=== PATIENT | male | born 1955 | race Caucasian/White ===

== ENCOUNTER 2017-12-22 08:44 | Emergency (ER) | payer OTHER ==
[~2017-12-22] VITALS: Ht 193 cm; Wt 97.5 kg
[2017-12-22 08:50] VITALS: BP 167/95
[2017-12-22] MEDS ORDERED: TRICOR145 MG PO (09:04)
[2017-12-22] MEDS ORDERED: PACERONE 200 M200 M1 PO (09:04)
[2017-12-22] MEDS ORDERED: TOPROL XL25 MG PO (09:04)
[2017-12-22] MEDS ORDERED: CLEOCIN HCL150 MG PO (09:05)
[2017-12-22] MEDS ORDERED: ASPIR 8181 MG PO (09:05)
[2017-12-22] MEDS ORDERED: CIPRODEX OTIC7.5 ML OTIC (09:21)
[2017-12-22] MEDS ORDERED: AUGMENTIN 875-1 EACH PO (09:21)
[2017-12-22] MEDS ORDERED: LOPRESSOR25 PO (09:21)
== END 2017-12-22 09:30 | disposition home or self-care (01) ==
LOC: M.ERS 08:44
DX: H60.93 Unspecified otitis externa, bilateral (principal); H66.93 Otitis media, unspecified, bilateral; I25.10 Atherosclerotic heart disease of native coronary artery without angina pectoris; I10 Essential (primary) hypertension; Z87.891 Personal history of nicotine dependence